=== PATIENT | female | born 1975 ===

== ENCOUNTER 2018-11-05 15:49 | Emergency (ER) | payer OTHER ==
[2018-11-05 16:15] VITALS: BP 116/88
--- NOTE | 2018-11-05 17:25 | UC ---
Respiratory Complaint HPI - HPI Summary HPI Summary: Is an 43-year-old female with history of muscular dystrophy presenting to the with cough and congestion 1.5 weeks. She is also endorsing pain to her right scapular region. She states she has been doing a lot of overuse activities at home. She endorses pain just under the right scapular region, worse after doing these activities. She's never had anything like this before. She endorses cough with production with green sputum temp 1.5 weeks. Denies any fevers, sweats, chills. Denies any headaches. She denies any recent illness or sick contacts. History of PNA. - History of Current Complaint Chief Complaint: UCRespiratory Stated Complaint: COUGH Time Seen by Provider: 11/05/18 15:55 Hx Obtained From: Patient ?: No Onset/Duration: Sudden Onset Timing: Constant Severity Initially: Mild Severity Currently: Mild Pain Intensity: 3 Pain Scale Used: 0-10 Numeric Character: Cough: Productive Aggravating Factors: Recumbent Position Alleviating Factors: Upright Position Associated Signs And Symptoms: Positive: URI, Nasal Congestion, Sinus Discomfort. Negative: Dyspnea, Fever, Chills, Pleuritic Chest Pain, Hemoptysis , Dizziness - Risk Factors Pulmonary Embolism Risk Factors: Negative Cardiac Risk Factors: Negative Pseudomonas Risk Factors: Negative - Allergies/Home Medications Allergies/Adverse Reactions: Allergies Allergy/AdvReac Type Severity Reaction Status Date / Time Penicillins Allergy Unknown Verified 11/05/18 15:57 Reaction Details Home Medications: Home Medications Levothyroxine TAB* [Synthroid TAB*] 25 mcg PO 0800 11/05/18 [History Confirmed 11/05/18] PMH/Surg Hx/FS Hx/Imm Hx Previously Healthy: Yes - Surgical History Surgical History: Yes Surgery Procedure, Year, and Place: L arm surgery with pins - Family History Known Family History: Positive: Other - muscular dystrophy - Social History Occupation: Unemployed Lives: With Family Alcohol Use: None Substance Use Type: Marijuana Smoking Status (MU): Current Some Day Smoker Type: Smokeless Tobacco Review of Systems All Other Systems Reviewed And Are Negative: Yes Constitutional: Positive: Negative Skin: Positive: Negative Respiratory: Positive: Shortness Of Breath, Cough Cardiovascular: Positive: Negative Motor: Positive: Other - pain to the R scapula Neurovascular: Positive: Negative Musculoskeletal: Positive: Arthralgia - R scapular pain Neurological: Positive: Negative Is Patient Immunocompromised?: Yes Physical Exam Triage Information Reviewed: Yes Appearance: Well-Appearing, Well-Nourished Vital Signs: Initial Vital Signs Temp 97.6 F 11/05/18 15:58 Pulse 81 11/05/18 15:58 Resp 18 11/05/18 15:58 BP 143/112 11/05/18 15:58 Pulse Ox 98 11/05/18 15:58 Vital Signs Reviewed: Yes Eye Exam: Normal Eyes: Positive: Conjunctiva Clear Neck exam: Normal Neck: Positive: Supple, No Lymphadenopathy Respiratory: Positive: Other: - rhonocorous sounds bilaterally Cardiovascular Exam: Normal Cardiovascular: Positive: RRR Musculoskeletal Exam: Normal Musculoskeletal: Positive: Strength Intact Neurological Exam: Normal Psychological Exam: Normal Skin Exam: Normal UC Diagnostic Evaluation - Laboratory O2 Sat by Pulse Oximetry: 98 Respiratory Course/Dx - Course Course Of Treatment: During the course treatment, the patient is evaluated for chest congestion and cough as well as right scapular pain. Upon palpation, pain is relieved with pressure and worse with movement. No difficulty with range of motion of the shoulder. Has pain historically below the scapular region, this appears to be an overuse injury as pain is worse after her overuse activities at home. Chest x-ray obtained due to cough and congestion. On physical examination, she is rhonchorous in bilateral lung bases. Denies any dysphagia or odynophagia. Denies any sinus pressure or pain, denies any headaches. Denies any fevers, sweats, chills. However due to her history of muscular dystrophy, strong cough with obvious production and 1.5 weeks of worsening condition, patient is prescribed azithromycin. Have encouraged heat, ibuprofen and massage for her right scapular overuse pain. She is also prescribed Tessalon for cough. - Differential Dx/Diagnosis Provider Diagnosis: Bronchitis, Overuse injury Discharge - Sign-Out/Discharge Documenting (check all that apply): Patient Departure All imaging exams completed and their final reports reviewed: Yes - Discharge Plan Condition: Stable Disposition: HOME Prescriptions: Azithromycin TAB* [Zithromax TAB (Z-SHARDA) 250 mg #6 tabs] 2 tab PO .TODAY, THEN 1 DAILY #1 sharda Benzonatate CAP* [Tessalon CAP*] 100 mg PO TID #21 cap Referrals: No Primary Care Phys,NOPCP [Primary Care Provider] - Additional Instructions: Azuthromycin - 2 tabs today and 1 tab daily x 4 days Tessalon up to three times daily as needed for cough Ibuprofen 600mg three times daily Moist heat to the area as needed - Billing Disposition and Condition Condition: STABLE Disposition: Home - Attestation Statements Provider Attestation: I was available for consult. This patient was seen by the [facility]. The patient was not presented to, seen by, or examined by me. -Daryl
== END 2018-11-05 17:25 | disposition home or self-care (01) ==
LOC: UCEAST 15:49
DX: J40 Bronchitis, not specified as acute or chronic (principal); M70.811 Other soft tissue disorders related to use, overuse and pressure, right shoulder; Z88.0 Allergy status to penicillin; Z75.0 Medical services not available in home
CPT/HCPCS: 71046; 99202; G0463